=== PATIENT | male | born 1935 | race Caucasian/White ===

== ENCOUNTER 2016-06-11 12:16 | Emergency (ER) | payer MEDICARE, OTHER ==
[2016-06-11 12:42] LABS: CHLORIDE,CL 109 mEq/L (98-106); SODIUM,NA 146 mEq/L (136-145)
--- NOTE | 2016-06-11 12:54 | EDM.PDOC ---
ED HPI GENERAL MEDICAL PROBLEM - General Chief Complaint: General Stated Complaint: WEAKNESS Time Seen by Provider: 06/11/16 12:43 Source of Information: Reports: Patient History Limitations: Reports: No limitations - History of Present Illness INITIAL COMMENTS - FREE TEXT/NARRATIVE: History of present illness: [80 year-old male presenting with complaints of chronic fatigue exacerbated now by feelings of generalized weakness. Patient has home health assistance which indicated that he should come in to be evaluated. Spoke with stepson and stepdaughter in regards to their concerns of father's generalized weakness patient had a fall some time Ms. Obrien he is seen and evaluated by his primary care provider who has ordered him in home physical therapy.] Review of systems: As per history of present illness and below otherwise all systems reviewed and negative. Past medical history: As per history of present illness and as reviewed below otherwise noncontributory. Surgical history: As per history of present illness and as reviewed below otherwise noncontributory. Social history: No reported history of drug or alcohol abuse. Family history: As per history of present illness and as reviewed below otherwise noncontributory. Physical exam: HEENT: Atraumatic, normocephalic, pupils reactive, negative for conjunctival pallor or scleral icterus, mucous membranes moist, throat clear, neck supple, nontender, trachea midline. Lungs: Clear to auscultation, breath sounds equal bilaterally, chest nontender. Heart: S1S2, regular, negative for clicks, rubs, or JVD. Abdomen: Soft, nondistended, nontender. Negative for masses or hepatosplenomegaly. Negative for costovertebral tenderness. Pelvis: Stable nontender. Genitourinary: Deferred. Rectal: Deferred. Extremities: Atraumatic, negative for cords or calf pain. Neurovascular unremarkable. Neuro: Awake, alert, oriented to person place and event. Pt has clear snf memory but in relaying history he struggles to complete thoughts. Cranial nerves II through XII unremarkable. Cerebellum unremarkable. Motor and sensory unremarkable throughout. Exam nonfocal. Diagnostics: [CBC, CMP, repeat potassium level] Therapeutics: [Potassium 80 mg by mouth with 20 mg IV piggyback] Impression: [Hypokalemia] Plan: [Followup with PCP evaluate for need for inpatient rehabilitation secondary to family concern of weakness] Definitive disposition and diagnosis as appropriate pending reevaluation and review of above. - Related Data Allergies Allergy/AdvReac Type Severity Reaction Status Date / Time No Known Allergies Allergy Verified 06/11/16 12:24 Home Meds: Home Meds Ascorbic Acid [Vitamin C] 1,000 mg PO DAILY 06/11/16 [History] Aspirin 325 mg PO DAILY 06/11/16 [History] Cholecalciferol (Vitamin D3) [Vitamin D3] 2,000 unit PO DAILY 06/11/16 [History] Clopidogrel Bisulfate [Plavix] 75 mg PO DAILY 06/11/16 [History] Fenofibrate [Lofibra] 160 mg PO DAILY 06/11/16 [History] Insulin NPH/Insulin Reg,Human [HumuLIN 70-30 Pen] 50 unit SQ QAM 06/11/16 [ History] Magnesium 30 mg PO DAILY 06/11/16 [History] Metoprolol Tartrate [Lopressor] 50 mg PO BID 06/11/16 [History] Multivitamin [Multivitamins] 1 cap PO DAILY 06/11/16 [History] Nitroglycerin [Nitrostat] 0.4 mg PO ASDIRECTED PRN 06/11/16 [History] Simvastatin [Zocor] 80 mg PO DAILY 06/11/16 [History] ED ROS GENERAL - Review of Systems Review Of Systems: See Below (See history of present illness) ED EXAM, GENERAL - Physical Exam Exam: See Below (See history of present illness) Course - Vital Signs Last Recorded V/S: Last Vital Signs Temp 35.9 C 06/11/16 16:23 Pulse 84 06/11/16 16:23 Resp 20 06/11/16 16:23 BP 192/84 H 06/11/16 16:23 Pulse Ox 98 06/11/16 16:23 - Orders/Labs/Meds Orders: Active Orders 24 hr Category Date Time Status Potassium Chloride [KCL 20 MEQ in Water 100 ML] 20 meq Med 06/11/16 13:12 Active Premix Bag 1 bag IV ONETIME Sodium Chloride 0.9% [Normal Saline] 1,000 ml Med 06/11/16 13:45 Active IV ASDIRECTED Medication Orders Potassium Chloride 20 meq/ (Premix) 100 mls @ 25 mls/hr IV ONETIME ONE Stop: 06/11/16 17:11 Last Admin: 06/11/16 13:40 Dose: 25 mls/hr Sodium Chloride (Normal Saline) 1,000 mls @ 75 mls/hr IV ASDIRECTED ANTHONY Last Admin: 06/11/16 13:47 Dose: 75 mls/hr Labs: Laboratory Tests 06/11/16 06/11/16 06/11/16 Range/Units 12:26 12:26 15:54 WBC 10.9 H (5.0-10.0) 10^3/uL RBC 4.45 L (4.50-6.00) 10^6/uL Hgb 14.1 (14.0-18.0) g/dL Hct 41.4 (40.0-54.0) % MCV 93.0 (82.0-94.0) fL MCH 31.7 (27.0-32.0) pg MCHC 34.1 (33.0-38.0) g/dL RDW Coeff of George 13.5 (11.0-15.0) % Plt Count 295 (150-400) 10^3/uL Neut % (Auto) 70.2 (35-85) % Lymph % (Auto) 21.0 (10-55) % [place] % (Auto) 8.1 (0-16) % Eos % (Auto) 0.5 (0-5) % Baso % (Auto) 0.2 (0-3) % Neut # 7.67 H (1.80-7.00) 10^3/uL Lymph # 2.30 (1.00-4.80) 10^3/uL [place] # 0.88 H (0.00-0.80) 10^3/uL Eos # 0.06 (0.00-0.45) 10^3/uL Baso # 0.02 10^3/uL Sodium 146 H (136-145) mEq/L Potassium 2.9 L* D (3.5-5.0) mEq/L Chloride 109 H (98-106) mEq/L Carbon Dioxide 30 (21-32) mmol/L BUN 17 (7-18) mg/dL Creatinine 1.1 (0.7-1.3) mg/dL Est Cr Clr Drug Dosing 55.14 mL/min Estimated GFR (MDRD) > 60 (>=60) mL/min Glucose 119 H (75-99) mg/dL Calcium 10.4 H (8.4-10.1) mg/dL Total Bilirubin 0.4 (0.0-1.0) mg/dL AST 16 (15-37) U/L ALT 20 (12-78) U/L Alkaline Phosphatase 68 (46-116) U/L Total Protein 7.0 (6.4-8.2) g/dL Albumin 3.2 L (3.4-5.0) g/dL Urine Color Yellow (YELLOW) Urine Appearance Slightly cloudy (CLEAR) Urine pH 7.0 (4.5-8.0) Ur Specific [place] 1.014 (1.003-1.020) Urine Protein Negative (NEGATIVE) mg/dL Urine Glucose (UA) Negative (NEGATIVE) mg/dL Urine Ketones Negative (NEGATIVE) mg/dL Urine Occult Blood Negative (NEGATIVE) Urine Nitrite Negative (NEGATIVE) Urine Bilirubin Negative (NEGATIVE) Urine Urobilinogen 0.2 (0.2-1.0) EU/dL Ur Leukocyte Esterase Negative (NEGATIVE) Urine RBC Not seen (0-5) /HPF Urine WBC Not seen (0-5) /HPF Ur Squamous Epith Cells Occasional H (NOT SEEN) /HPF Amorphous Sediment Moderate H (NOT SEEN) /HPF 06/11/16 Range/Units 16:01 WBC (5.0-10.0) 10^3/uL RBC (4.50-6.00) 10^6/uL Hgb (14.0-18.0) g/dL Hct (40.0-54.0) % MCV (82.0-94.0) fL MCH (27.0-32.0) pg MCHC (33.0-38.0) g/dL RDW Coeff of George (11.0-15.0) % Plt Count (150-400) 10^3/uL Neut % (Auto) (35-85) % Lymph % (Auto) (10-55) % [place] % (Auto) (0-16) % Eos % (Auto) (0-5) % Baso % (Auto) (0-3) % Neut # (1.80-7.00) 10^3/uL Lymph # (1.00-4.80) 10^3/uL [place] # (0.00-0.80) 10^3/uL Eos # (0.00-0.45) 10^3/uL Baso # 10^3/uL Sodium (136-145) mEq/L Potassium 3.7 D (3.5-5.0) mEq/L Chloride (98-106) mEq/L Carbon Dioxide (21-32) mmol/L BUN (7-18) mg/dL Creatinine (0.7-1.3) mg/dL Est Cr Clr Drug Dosing mL/min Estimated GFR (MDRD) (>=60) mL/min Glucose (75-99) mg/dL Calcium (8.4-10.1) mg/dL Total Bilirubin (0.0-1.0) mg/dL AST (15-37) U/L ALT (12-78) U/L Alkaline Phosphatase (46-116) U/L Total Protein (6.4-8.2) g/dL Albumin (3.4-5.0) g/dL Urine Color (YELLOW) Urine Appearance (CLEAR) Urine pH (4.5-8.0) Ur Specific [place] (1.003-1.020) Urine Protein (NEGATIVE) mg/dL Urine Glucose (UA) (NEGATIVE) mg/dL Urine Ketones (NEGATIVE) mg/dL Urine Occult Blood (NEGATIVE) Urine Nitrite (NEGATIVE) Urine Bilirubin (NEGATIVE) Urine Urobilinogen (0.2-1.0) EU/dL Ur Leukocyte Esterase (NEGATIVE) Urine RBC (0-5) /HPF Urine WBC (0-5) /HPF Ur Squamous Epith Cells (NOT SEEN) /HPF Amorphous Sediment (NOT SEEN) /HPF Meds: Medications Generic Name Dose Route Start Last Admin Trade Name Freq PRN Reason Stop Dose Admin Potassium Chloride 20 meq/ 100 mls @ 25 mls/hr 06/11/16 13:12 06/11/16 13:40 Premix IV 06/11/16 17:11 25 mls/hr ONETIME ONE Administration Sodium Chloride 1,000 mls @ 75 mls/hr 06/11/16 13:45 06/11/16 13:47 Normal Saline IV 75 mls/hr ASDIRECTED ANTOHNY Administration Discontinued Medications Generic Name Dose Route Start Last Admin Trade Name Freq PRN Reason Stop Dose Admin Sodium Chloride Confirm 06/11/16 13:48 Normal Saline Administered 06/11/16 13:49 Dose 1,000 mls @ as directed .ROUTE .STK-MED ONE Metoprolol Tartrate 50 mg 06/11/16 16:31 Lopressor PO 06/11/16 16:32 ONETIME ONE Potassium Chloride 40 meq 06/11/16 13:04 06/11/16 13:34 Potassium Chloride Solution PO 06/11/16 13:05 40 meq ONETIME ONE Administration Potassium Chloride 40 meq 06/11/16 14:48 06/11/16 15:29 Potassium Chloride Solution PO 06/11/16 14:49 40 meq ONETIME ONE Administration Departure - Departure Time of Disposition: 16:35 Disposition: Home, Self-Care 01 Condition: good Clinical Impression: Hypokalemia, Weakness Forms: ED Department Discharge Additional Instructions: The following information is given to patients seen in the emergency department who are being discharged to home. This information is to outline your options for follow-up care. We provide all patients seen in our emergency department with a follow-up referral. The need for follow-up, as well as the timing and circumstances, are variable depending upon the specifics of your emergency department visit. If you don't have a primary care physician on staff, we will provide you with a referral. We always advise you to contact your personal physician following an emergency department visit to inform them of the circumstance of the visit and for follow-up with them and/or the need for any referrals to a consulting specialist. The emergency department will also refer you to a specialist when appropriate. This referral assures that you have the opportunity for follow-up care with a specialist. All of these measure are taken in an effort to provide you with optimal care, which includes your follow-up. Under all circumstances we always encourage you to contact your private physician who remains a resource for coordinating your care. When calling for follow-up care, please make the office aware that this follow-up is from your recent emergency room visit. If for any reason you are refused follow-up, please contact the [facility] Emergency Department at and asked to speak to the emergency department charge nurse. Follow up with Primary Care provider for further evaluation of rehab or homestay Return to ER as needed - My Orders Last 24 Hours: My Active Orders 06/11/16 13:12 Potassium Chloride [KCL 20 MEQ in Water 100 ML] 20 meq Premix Bag 1 bag IV ONETIME 06/11/16 13:45 Sodium Chloride 0.9% [Normal Saline] 1,000 ml IV ASDIRECTED - Assessment/Plan Last 24 Hours: My Active Orders 06/11/16 13:12 Potassium Chloride [KCL 20 MEQ in Water 100 ML] 20 meq Premix Bag 1 bag IV ONETIME 06/11/16 13:45 Sodium Chloride 0.9% [Normal Saline] 1,000 ml IV ASDIRECTED
[2016-06-11] MEDS ORDERED: Potassium Chloride 10% 20 MEQ/15 ML Soln 15 ML UD Cup PO ONE ×2 (13:04→14:48)
[2016-06-11] MEDS ORDERED: Potassium Chloride 20 MEQ in Premix Bag 1 BAG IV ONE (13:12)
[2016-06-11] MEDS ORDERED: Sodium Chloride 0.9% 1,000 ML IV SCH (13:45)
[2016-06-11] MEDS ORDERED: Sodium Chloride 0.9% 1,000 ML ONE (13:48)
[2016-06-11] MEDS ORDERED: Metoprolol Tartrate 50 MG Tab PO ONE (16:31)
[2016-06-12 14:16] VITALS: BP 195/94
== END 2016-06-11 17:12 | disposition home or self-care (01) ==
LOC: CC.ED 12:16 → CC.MS 06-12 13:48 → UNDOADMIN 06-12 13:48
DX: E87.6 Hypokalemia (principal); R53.1 Weakness; Z79.82 Long term (current) use of aspirin; Z79.899 Other long term (current) drug therapy; E11.9 Type 2 diabetes mellitus without complications; Z79.4 Long term (current) use of insulin
CPT/HCPCS: 36415; 80053; 81001; 84132; 85025; 96365; 96366; 99285; A9270; J3480; J7030

== ENCOUNTER 2016-06-12 10:42 | Inpatient (IN) | payer MEDICARE, OTHER ==
[2016-06-12] MEDS ORDERED: Sodium Chloride 0.9% 1,000 ML IV ONE (11:34)
[2016-06-12] MEDS ORDERED: Ketorolac 30 MG/ML SDV IVPUSH ONE (11:34)
--- NOTE | 2016-06-12 11:35 | EDM.PDOC ---
ED HPI Trauma - General Chief Complaint: Lower Extremity Injury/Pain Stated Complaint: fall/left hip pain Time Seen by Provider: 06/12/16 11:30 Source: Reports: Patient, Family History Limitations: Reports: No limitations - History of Present Illness INITIAL COMMENTS - FREE TEXT/NARRATIVE: History of present illness: [80-year-old male returns to ED from home status post fall in the kitchen. Patient was seen in the ED yesterday secondary to feelings of generalized weakness. Patient was found yesterday to have hypokalemia which was repleted and patient verbalized desire to return home and was stable enough to do so. Patient has had a recent issue with his gait starting a few weeks ago where he slipped and fell and hurt his back he had just started getting physical therapy as well as home health care. Dilantin yesterday with family was in regards to patient's potential need for inpatient rehabilitation as well as potential long- term care placement. Family indicated that they wanted to dialogue about this care and future decision making in regards to patient's needs. Now patient is presenting with yet another fall this time with left-sided hip pain.] Review of systems: As per history of present illness and below otherwise all systems reviewed and negative. Past medical history: As per history of present illness and as reviewed below otherwise noncontributory. Surgical history: As per history of present illness and as reviewed below otherwise noncontributory. Social history: No reported history of drug or alcohol abuse. Family history: As per history of present illness and as reviewed below otherwise noncontributory. Physical exam: HEENT: Atraumatic, normocephalic, pupils reactive, negative for conjunctival pallor or scleral icterus, mucous membranes moist, throat clear, neck supple, nontender, trachea midline. Lungs: Clear to auscultation, breath sounds equal bilaterally, chest nontender. Heart: S1S2, regular, negative for clicks, rubs, or JVD. Abdomen: Soft, nondistended, nontender. Negative for masses or hepatosplenomegaly. Negative for costovertebral tenderness. Pelvis: Stable nontender. Genitourinary: Deferred. Rectal: Deferred. Extremities: Patient with pain to left hip and noted abrasions bilateral knees, , negative for cords or calf pain. Neurovascular unremarkable. Neuro: Awake, alert, oriented self and history are all issues but noted to have sporadic loss of events as well as short-term memory issues. Extremely hard of hearing and difficult to follow a thorough neuro evaluation secondary to this issue . Family indicates that this is a new altered metal status as patient has been independent with no difficulties prior to now. Patient was seen here yesterday with a low potassium level and potassium level is stable at this time. Diagnostics: [X-ray of left hip, CT of left hip, CBC, CMP] Therapeutics: [] Impression: [Altered mental status] Plan: [Admit to [facility] for further evaluation workup Definitive disposition and diagnosis as appropriate pending reevaluation and review of above. Allergies/ADRs: Allergies No Known Allergies Allergy (Verified 06/12/16 10:45) Home Medications: Ambulatory Orders Ascorbic Acid [Vitamin C] 1,000 mg PO DAILY 06/11/16 [Confirmed 06/12/16] Aspirin 325 mg PO DAILY 06/11/16 [Confirmed 06/12/16] Cholecalciferol (Vitamin D3) [Vitamin D3] 2,000 unit PO DAILY 06/11/16 [ Confirmed 06/12/16] Clopidogrel Bisulfate [Plavix] 75 mg PO DAILY 06/11/16 [Confirmed 06/12/16] Fenofibrate [Lofibra] 160 mg PO DAILY 06/11/16 [Confirmed 06/12/16] Insulin NPH/Insulin Reg,Human [HumuLIN 70-30 Pen] 50 unit SQ QAM 06/11/16 [ Confirmed 06/12/16] Magnesium 30 mg PO DAILY 06/11/16 [Confirmed 06/12/16] Metoprolol Tartrate [Lopressor] 50 mg PO BID 06/11/16 [Confirmed 06/12/16] Multivitamin [Multivitamins] 1 cap PO DAILY 06/11/16 [Confirmed 06/12/16] Nitroglycerin [Nitrostat] 0.4 mg PO ASDIRECTED PRN 06/11/16 [Confirmed 06/12/16] Simvastatin [Zocor] 80 mg PO DAILY 06/11/16 [Confirmed 06/12/16] Past Medical History Cardiovascular History: Reports: High cholesterol, Hypertension, Stents Genitourinary History: Reports: BPH Endocrine/Metabolic History: Reports: Diabetes, type II - Past Surgical History GI Surgical History: Reports: Colonoscopy Musculoskeletal Surgical History: Reports: Knee replacement Social & Family History - Tobacco Use Smoking Status *Q: Former Smoker Years of Tobacco use: 45 - Recreational Drug Use Recreational Drug Use: No Review of Systems - Review of Systems Review Of Systems: See Below (See history of present illness) Trauma Exam - Physical Exam Exam: See Below (See history of present illness) Course - Vital Signs Last Recorded V/S: Last Vital Signs Temp 37.1 C 06/12/16 10:43 Pulse 99 06/12/16 10:43 Resp 20 06/12/16 10:43 BP 174/123 H 06/12/16 10:43 Pulse Ox 98 06/12/16 10:43 - Orders/Labs/Meds Orders: Active Orders 24 hr Category Date Time Status Head wo Cont [CT] Routine Exams 06/12/16 Taken Hip Min 2V or 3V w Pelvis Lt [CR] Stat Exams 06/12/16 10:49 Taken Pelvis wo Cont [CT] Stat Exams 06/12/16 11:33 Taken Sodium Chloride 0.9% [Normal Saline] 1,000 ml Med 06/12/16 11:34 Active IV STAT Medication Orders Sodium Chloride (Normal Saline) 1,000 mls @ 75 mls/hr IV STAT ONE Stop: 06/13/16 00:53 Last Admin: 06/12/16 11:47 Dose: 75 mls/hr Labs: Laboratory Tests 06/12/16 06/12/16 Range/Units 11:33 11:50 WBC 14.3 H (5.0-10.0) 10^3/uL RBC 4.37 L (4.50-6.00) 10^6/uL Hgb 13.9 L (14.0-18.0) g/dL Hct 41.0 (40.0-54.0) % MCV 93.8 (82.0-94.0) fL MCH 31.8 (27.0-32.0) pg MCHC 33.9 (33.0-38.0) g/dL RDW Coeff of George 13.8 (11.0-15.0) % Plt Count 284 (150-400) 10^3/uL Neut % (Auto) 76.0 (35-85) % Lymph % (Auto) 12.9 (10-55) % [place] % (Auto) 10.2 (0-16) % Eos % (Auto) 0.6 (0-5) % Baso % (Auto) 0.3 (0-3) % Neut # 10.84 H (1.80-7.00) 10^3/uL Lymph # 1.84 (1.00-4.80) 10^3/uL [place] # 1.45 H (0.00-0.80) 10^3/uL Eos # 0.08 (0.00-0.45) 10^3/uL Baso # 0.04 10^3/uL Sodium 145 (136-145) mEq/L Potassium 3.3 L (3.5-5.0) mEq/L Chloride 108 H (98-106) mEq/L Carbon Dioxide 27 (21-32) mmol/L BUN 15 (7-18) mg/dL Creatinine 1.1 (0.7-1.3) mg/dL Est Cr Clr Drug Dosing TNP Estimated GFR (MDRD) > 60 (>=60) mL/min Glucose 167 H D (75-99) mg/dL Calcium 10.0 (8.4-10.1) mg/dL Total Bilirubin 0.5 (0.0-1.0) mg/dL AST 18 (15-37) U/L ALT 21 (12-78) U/L Alkaline Phosphatase 72 (46-116) U/L Total Protein 6.9 (6.4-8.2) g/dL Albumin 3.4 (3.4-5.0) g/dL Meds: Medications Generic Name Dose Route Start Last Admin Trade Name Freq PRN Reason Stop Dose Admin Sodium Chloride 1,000 mls @ 75 mls/hr 06/12/16 11:34 06/12/16 11:47 Normal Saline IV 06/13/16 00:53 75 mls/hr STAT ONE Administration Discontinued Medications Generic Name Dose Route Start Last Admin Trade Name Freq PRN Reason Stop Dose Admin Ketorolac Tromethamine 30 mg 06/12/16 11:34 06/12/16 11:47 Toradol IVPUSH 06/12/16 11:35 30 mg ONETIME ONE Administration Ondansetron HCl 4 mg 06/12/16 11:34 Zofran IVPUSH 06/12/16 11:35 ONETIME ONE Departure - Departure Time of Disposition: 14:00 Disposition: Admitted As Inpatient 64 Condition: good Clinical Impression: Altered mental status, unspecified Qualifiers: Altered mental status type: unspecified Qualified Code(s): R41.82 - Altered mental status, unspecified Forms: ED Department Discharge - My Orders Last 24 Hours: My Active Orders 06/12/16 Head wo Cont [CT] Routine 06/12/16 10:49 Hip Min 2V or 3V w Pelvis Lt [CR] Stat 06/12/16 11:33 Pelvis wo Cont [CT] Stat 06/12/16 11:34 Sodium Chloride 0.9% [Normal Saline] 1,000 ml IV STAT - Assessment/Plan Last 24 Hours: My Active Orders 06/12/16 Head wo Cont [CT] Routine 06/12/16 10:49 Hip Min 2V or 3V w Pelvis Lt [CR] Stat 06/12/16 11:33 Pelvis wo Cont [CT] Stat 06/12/16 11:34 Sodium Chloride 0.9% [Normal Saline] 1,000 ml IV STAT
[2016-06-12] MEDS: Ondansetron 4 MG/2 ML SDV IVPUSH ONE ×2 (11:47→15:21)
[2016-06-12 12:13] LABS: CHLORIDE,CL 108 mEq/L (98-106); SODIUM,NA 145 mEq/L (136-145)
[2016-06-12] MEDS ORDERED: Morphine 2 MG/ML Syringe IVPUSH ONE (17:54)
[2016-06-12] MEDS ORDERED: Ondansetron 4 MG/2 ML SDV IVPUSH ONE (17:55)
[2016-06-12] MEDS ORDERED: Docusate Sodium 100 MG Cap PO PRN (18:13)
[2016-06-12] MEDS ORDERED: Ondansetron 4 MG Tab.DIS PO PRN (18:13)
[2016-06-12] MEDS ORDERED: Morphine 2 MG/ML Syringe IVPUSH PRN (18:13)
[2016-06-12] MEDS ORDERED: Ketorolac 30 MG/ML SDV IV PRN (18:13)
[2016-06-12] MEDS ORDERED: Nitroglycerin 0.4 MG Tab.SL SL PRN (20:38)
[2016-06-12] MEDS: Insulin Detemir 100 Units/ML 3 ML Pen SUBCUT SCH (21:11)
[2016-06-12] MEDS ORDERED: Levofloxacin/Dextrose 5%-Water 750 MG in Premix Bag 1 BAG IV ONE (22:10)
[2016-06-13] MEDS: Aspirin 325 MG Tab.EC PO SCH (07:45)
[2016-06-13] MEDS: Cholecalciferol (Vitamin D3) 1,000 Unit Tab PO SCH (07:46)
[2016-06-13] MEDS: Ascorbic Acid 500 MG Tab PO SCH (07:46)
[2016-06-13] MEDS: Multivitamin Tab PO SCH (07:47)
[2016-06-13] MEDS: Magnesium Chloride 64 MG Tab.ER PO SCH (07:48)
[2016-06-13] MEDS: Metoprolol Tartrate 50 MG Tab PO SCH ×2 (07:48→20:10)
[2016-06-13] MEDS: Fenofibrate 160 MG Tab PO SCH (07:48)
[2016-06-13] MEDS: Clopidogrel 75 MG Tab PO SCH (07:49)
[2016-06-13] MEDS ORDERED: Simvastatin 40 MG Tab PO SCH (08:00)
[2016-06-13] MEDS: Insulin Detemir 100 Units/ML 3 ML Pen SUBCUT SCH (08:48)
[2016-06-13] MEDS: Insuln Aspart Prot/Insulin Aspart 100 Units/ML 3 ML FlexPen SUBCUT SCH ×2 (09:07→17:39)
[2016-06-13] MEDS: Nystatin Crm 30 GM Tube TOP SCH ×2 (09:08→20:11)
--- NOTE | 2016-06-13 09:20 | PN ---
DATE: 06/13/2016 S: Robinson Acuna was admitted after he fell at home, difficulty moving his left leg. Complaining of back pain. O: GENERAL: The patient is alert and orientated. VITAL SIGNS: As noted. NECK: Supple. CHEST: Clear. CARDIAC: Sounds are good. ABDOMEN: Soft. MUSCULOSKELETAL: He is tender over the lumbar spine. ASSESSMENT: BACK INJURY, DIABETES, HYPOKALEMIA, WHICH IS CORRECTING. P: We will get an MRI tomorrow and work on usp placement. MICHAEL/BRITNEY /[id number]
[2016-06-13 09:51] LABS: CHLORIDE,CL 108 mEq/L (98-106); SODIUM,NA 143 mEq/L (136-145)
[2016-06-14] MEDS ORDERED: 50% Dextrose in Water 50 ML Syringe IVPUSH ONE (00:42)
[2016-06-14] MEDS: Aspirin 325 MG Tab.EC PO SCH (07:38)
[2016-06-14] MEDS: Fenofibrate 160 MG Tab PO SCH (07:38)
[2016-06-14] MEDS: Metoprolol Tartrate 50 MG Tab PO SCH ×2 (07:38→20:25)
[2016-06-14] MEDS: Nystatin Crm 30 GM Tube TOP SCH ×2 (07:39→20:28)
[2016-06-14] MEDS: Magnesium Chloride 64 MG Tab.ER PO SCH (07:39)
[2016-06-14] MEDS: Clopidogrel 75 MG Tab PO SCH (07:39)
[2016-06-14] MEDS: Cholecalciferol (Vitamin D3) 1,000 Unit Tab PO SCH (07:40)
[2016-06-14] MEDS: Ascorbic Acid 500 MG Tab PO SCH (07:40)
[2016-06-14] MEDS: Multivitamin Tab PO SCH (07:40)
[2016-06-14] MEDS: Insuln Aspart Prot/Insulin Aspart 100 Units/ML 3 ML FlexPen SUBCUT SCH ×3 (08:27→17:33)
[2016-06-14] MEDS: Potassium Chloride 10 MEQ Tab.ER PO SCH (08:30)
[2016-06-14 08:41] LABS: CHLORIDE,CL 105 mEq/L (98-106); SODIUM,NA 141 mEq/L (136-145)
--- NOTE | 2016-06-14 15:08 | PN ---
DATE: 06/14/2016 S: Robinson Acuna came in, fell at home, unable to get up, back injury, and for with diabetes. They say he is a bit confused. O: GENERAL: The patient is mildly confused. NECK: Supple. CHEST: Clear. CARDIAC: Regular. ASSESSMENT: BACK INJURY, DIABETES MELLITUS, MILD CONFUSION. P: We are working on [facility] placement. MICHAEL/BRITNEY /[id number]
[2016-06-14] MEDS: Simvastatin 40 MG Tab PO SCH (20:26)
[2016-06-14] MEDS ORDERED: THIAMINE IV ONE (21:37)
[2016-06-14] MEDS ORDERED: FOLIC ACID IV ONE (21:37)
[2016-06-14] MEDS ORDERED: MAGNESIUM SULFATE IV ONE (21:37)
[2016-06-14] MEDS ORDERED: [UNRECOGNIZED DRUG - OTHER] IV ONE (21:37)
[2016-06-15] MEDS: Metoprolol Tartrate 50 MG Tab PO SCH ×2 (07:40→19:09)
[2016-06-15] MEDS: Potassium Chloride 10 MEQ Tab.ER PO SCH (07:41)
[2016-06-15] MEDS: Aspirin 325 MG Tab.EC PO SCH (07:41)
[2016-06-15] MEDS: Fenofibrate 160 MG Tab PO SCH (07:42)
[2016-06-15] MEDS: Magnesium Chloride 64 MG Tab.ER PO SCH (07:42)
[2016-06-15] MEDS: Clopidogrel 75 MG Tab PO SCH (07:42)
[2016-06-15] MEDS: Ascorbic Acid 500 MG Tab PO SCH (07:43)
[2016-06-15] MEDS: Cholecalciferol (Vitamin D3) 1,000 Unit Tab PO SCH (07:43)
[2016-06-15] MEDS: Multivitamin Tab PO SCH (07:43)
[2016-06-15] MEDS: Nystatin Crm 30 GM Tube TOP SCH ×2 (07:44→19:04)
[2016-06-15] MEDS: Insuln Aspart Prot/Insulin Aspart 100 Units/ML 3 ML FlexPen SUBCUT SCH ×2 (08:11→17:32)
--- NOTE | 2016-06-15 12:29 | PN ---
DATE: 06/15/2016 S: Robinson Acuna is an 80-year-old gentleman, who came in after a fall with knee injury and back injury. MRI is pending. He is a little bit more confused today, but his family says he drinks quite a bit of uzma at night and may be that is just little withdrawal from that. Otherwise, lab looks good. O: NECK: Supple. CHEST: Clear. CARDIAC: Sounds are good. ASSESSMENT: BACK INJURY, EARLY DEMENTIA, DIABETES UNDER CONTROL NOW. P: halfway placement. MICHAEL/BRITNEY /[id number]
[2016-06-15] MEDS: Simvastatin 40 MG Tab PO SCH (19:04)
[2016-06-16 07:18] VITALS: BP 191/90
[2016-06-16] MEDS: Aspirin 325 MG Tab.EC PO SCH (08:11)
[2016-06-16] MEDS: Multivitamin Tab PO SCH (08:11)
[2016-06-16] MEDS: Fenofibrate 160 MG Tab PO SCH (08:11)
[2016-06-16] MEDS: Potassium Chloride 10 MEQ Tab.ER PO SCH (08:11)
[2016-06-16] MEDS: Cholecalciferol (Vitamin D3) 1,000 Unit Tab PO SCH (08:11)
[2016-06-16] MEDS: Metoprolol Tartrate 50 MG Tab PO SCH (08:11)
[2016-06-16] MEDS: Magnesium Chloride 64 MG Tab.ER PO SCH (08:12)
[2016-06-16] MEDS: Clopidogrel 75 MG Tab PO SCH (08:12)
[2016-06-16] MEDS: Ascorbic Acid 500 MG Tab PO SCH (08:12)
[2016-06-16] MEDS: Nystatin Crm 30 GM Tube TOP SCH (08:12)
[2016-06-16] MEDS: Insuln Aspart Prot/Insulin Aspart 100 Units/ML 3 ML FlexPen SUBCUT SCH (08:13)
--- NOTE | 2016-06-17 08:38 | DISCH ---
HOSPITAL COURSE: Robinson Acuna was admitted after he fell at home, moderate- to-severe back pain, he is admitted to acute care, started on PT/OT. Also, blood sugars were elevated, so we watched him closely and actually yesterday his blood sugar was 149. CBC; mildly elevated white count on admission, probably secondary just to the trauma. D-dimer elevated 1.71 probably from his lung disease. Potassium was low with back up to 3.4. Urinalysis looked good. DISPOSITION: The patient now discharged here to swing bed, awaiting jail placement in [place]. DISCHARGE MEDICATIONS: Hospital medications plus I will add lisinopril 10 mg daily, try and bring his blood pressure down. DISCHARGE DIAGNOSIS: 1. BACK INJURY. 2. DIABETES MELLITUS. 3. CORONARY ARTERY DISEASE. 4. DIABETES. 5. HYPERTENSION. 6. HYPERLIPIDEMIA. [place] /[id number]
== END 2016-06-16 09:30 | disposition swing bed (61) | DRG 948 ==
LOC: CC.ED 10:42 → CC.MS 13:48 → UNDOADMIN 13:48 → CC.MS 14:32
PROVIDERS: ADMIT Nurse Practitioner Family; ATTEND General Practice
DX: R41.82 Altered mental status, unspecified (principal); R53.1 Weakness; M25.552 Pain in left hip; M19.90 Unspecified osteoarthritis, unspecified site; E87.6 Hypokalemia; E11.9 Type 2 diabetes mellitus without complications; Z79.4 Long term (current) use of insulin; S79.912A Unspecified injury of left hip, initial encounter; S39.92XA Unspecified injury of lower back, initial encounter; W19.XXXA Unspecified fall, initial encounter; I25.10 Atherosclerotic heart disease of native coronary artery without angina pectoris; I10 Essential (primary) hypertension; E78.00 Pure hypercholesterolemia, unspecified; E78.5 Hyperlipidemia, unspecified; N40.0 Benign prostatic hyperplasia without lower urinary tract symptoms; Z95.5 Presence of coronary angioplasty implant and graft; Z96.651 Presence of right artificial knee joint; Z87.891 Personal history of nicotine dependence; Z79.82 Long term (current) use of aspirin; Z79.899 Other long term (current) drug therapy
CPT/HCPCS: 36415; 70450; 72192; 73502; 80053; 85025; 96374; 99284; J1885; J2405; J7030; 72148; 73560-LT; 80048; 81001; 82962; 83605; 83880; 85379; 86140; 87040; 97162-GP; 97165-GO; 97530-GP; A9270-GY; J1815-GY; J1956; J2270; J3411; J3475; J3490; J7060

== ENCOUNTER 2016-06-16 09:36 | Inpatient (IN) | payer MEDICARE, OTHER ==
[2016-06-16] MEDS ORDERED: Docusate Sodium 100 MG Cap PO PRN ×2 (13:03→13:31)
[2016-06-16] MEDS ORDERED: Morphine 2 MG/ML Syringe IVPUSH PRN ×2 (13:03→13:31)
[2016-06-16] MEDS ORDERED: Nitroglycerin 0.4 MG Tab.SL SL PRN ×3 (13:03→14:32)
[2016-06-16] MEDS ORDERED: Ondansetron 4 MG Tab.DIS PO PRN ×2 (13:03→13:31)
[2016-06-16] MEDS ORDERED: Ketorolac 30 MG/ML SDV IV PRN ×2 (13:03→13:31)
[2016-06-16] MEDS: Lisinopril 10 MG Tab PO SCH (14:42)
[2016-06-16] MEDS ORDERED: Insuln Aspart Prot/Insulin Aspart 100 Units/ML 3 ML FlexPen SUBCUT SCH (17:30)
[2016-06-16] MEDS ORDERED: INSULIN REGULAR SUBCUT SCH (17:30)
[2016-06-16] MEDS ORDERED: INSULIN ISOPHANE SUBCUT SCH (17:30)
[2016-06-16] MEDS ORDERED: [UNRECOGNIZED DRUG - OTHER] SUBCUT SCH (17:30)
[2016-06-16] MEDS: Insuln Aspart Prot/Insulin Aspart 100 Units/ML 3 ML FlexPen SUBCUT SCH (17:45)
[2016-06-16] MEDS: Metoprolol Tartrate 50 MG Tab PO SCH (19:20)
[2016-06-16] MEDS: Simvastatin 40 MG Tab PO SCH (19:21)
[2016-06-16] MEDS: Nystatin Crm 30 GM Tube TOP SCH (19:21)
[2016-06-16] MEDS ORDERED: Metoprolol Tartrate 50 MG Tab PO SCH ×2 (20:00)
[2016-06-16] MEDS ORDERED: Nystatin Crm 30 GM Tube TOP SCH (20:00)
[2016-06-16] MEDS ORDERED: Simvastatin 40 MG Tab PO SCH (20:00)
[2016-06-17] MEDS: Fenofibrate 160 MG Tab PO SCH (07:25)
[2016-06-17] MEDS: Potassium Chloride 10 MEQ Tab.ER PO SCH (07:25)
[2016-06-17] MEDS: Aspirin 325 MG Tab.EC PO SCH (07:25)
[2016-06-17] MEDS: Magnesium Chloride 64 MG Tab.ER PO SCH (07:26)
[2016-06-17] MEDS: Nystatin Crm 30 GM Tube TOP SCH ×2 (07:26→19:52)
[2016-06-17] MEDS: Metoprolol Tartrate 50 MG Tab PO SCH ×2 (07:26→19:50)
[2016-06-17] MEDS: Clopidogrel 75 MG Tab PO SCH (07:27)
[2016-06-17] MEDS: Ascorbic Acid 500 MG Tab PO SCH (07:27)
[2016-06-17] MEDS: Multivitamin Tab PO SCH (07:27)
[2016-06-17] MEDS: Lisinopril 10 MG Tab PO SCH (07:27)
[2016-06-17] MEDS: Cholecalciferol (Vitamin D3) 1,000 Unit Tab PO SCH (07:28)
[2016-06-17] MEDS ORDERED: INSULIN ISOPHANE SQ SCH (08:00)
[2016-06-17] MEDS ORDERED: Non-Formulary Medication 1 Each (Ascorbic Acid [Vitamin C] 1,000 MG) PO SCH (08:00)
[2016-06-17] MEDS ORDERED: Non-Formulary Medication 1 Each (Simvastatin [Zocor] 80 MG) PO SCH (08:00)
[2016-06-17] MEDS ORDERED: Fenofibrate 160 MG Tab PO SCH ×2 (08:00)
[2016-06-17] MEDS ORDERED: Multivitamin Tab PO SCH (08:00)
[2016-06-17] MEDS ORDERED: Non-Formulary Medication 1 Each (Magnesium [Magnesium] 30 MG) PO SCH (08:00)
[2016-06-17] MEDS ORDERED: Aspirin 325 MG Tab PO SCH (08:00)
[2016-06-17] MEDS ORDERED: Magnesium Chloride 64 MG Tab.ER PO SCH (08:00)
[2016-06-17] MEDS ORDERED: Insuln Aspart Prot/Insulin Aspart 100 Units/ML 3 ML FlexPen SUBCUT SCH (08:00)
[2016-06-17] MEDS ORDERED: Cholecalciferol (Vitamin D3) 1,000 Unit Tab PO SCH (08:00)
[2016-06-17] MEDS ORDERED: INSULIN REGULAR SQ SCH (08:00)
[2016-06-17] MEDS ORDERED: Aspirin 325 MG Tab.EC PO SCH (08:00)
[2016-06-17] MEDS ORDERED: Clopidogrel 75 MG Tab PO SCH ×2 (08:00)
[2016-06-17] MEDS ORDERED: Non-Formulary Medication 1 Each (Multivitamin [Multivitamins] 1 CAP) PO SCH (08:00)
[2016-06-17] MEDS ORDERED: Non-Formulary Medication 1 Each (Cholecalciferol (Vitamin D3) [Vitamin D3] 2,000 UNIT) PO SCH (08:00)
[2016-06-17] MEDS ORDERED: [UNRECOGNIZED DRUG - OTHER] SQ SCH (08:00)
[2016-06-17] MEDS ORDERED: Ascorbic Acid 500 MG Tab PO SCH (08:00)
[2016-06-17] MEDS ORDERED: Potassium Chloride 10 MEQ Tab.ER PO SCH (08:00)
[2016-06-17] MEDS: Insuln Aspart Prot/Insulin Aspart 100 Units/ML 3 ML FlexPen SUBCUT SCH ×2 (08:04→17:36)
[2016-06-17 08:07] LABS: CHLORIDE,CL 105 mEq/L (98-106); SODIUM,NA 142 mEq/L (136-145)
[2016-06-17] MEDS ORDERED: Iopamidol 612 MG/ML 100 ML Bottle IVPUSH ONE (10:35)
[2016-06-17] MEDS: Simvastatin 40 MG Tab PO SCH (19:50)
[2016-06-18] MEDS: Metoprolol Tartrate 50 MG Tab PO SCH ×2 (08:30→20:13)
[2016-06-18] MEDS: Magnesium Chloride 64 MG Tab.ER PO SCH (08:30)
[2016-06-18] MEDS: Clopidogrel 75 MG Tab PO SCH (08:30)
[2016-06-18] MEDS: Cholecalciferol (Vitamin D3) 1,000 Unit Tab PO SCH (08:30)
[2016-06-18] MEDS: Lisinopril 10 MG Tab PO SCH (08:30)
[2016-06-18] MEDS: Potassium Chloride 10 MEQ Tab.ER PO SCH (08:30)
[2016-06-18] MEDS: Aspirin 325 MG Tab.EC PO SCH (08:31)
[2016-06-18] MEDS: Insuln Aspart Prot/Insulin Aspart 100 Units/ML 3 ML FlexPen SUBCUT SCH ×2 (08:31→17:48)
[2016-06-18] MEDS: Multivitamin Tab PO SCH (08:31)
[2016-06-18] MEDS: Ascorbic Acid 500 MG Tab PO SCH (08:31)
[2016-06-18] MEDS: Fenofibrate 160 MG Tab PO SCH (08:31)
[2016-06-18] MEDS: Nystatin Crm 30 GM Tube TOP SCH ×2 (08:32→20:13)
[2016-06-18] MEDS: Simvastatin 40 MG Tab PO SCH (20:13)
[2016-06-19] MEDS: Ascorbic Acid 500 MG Tab PO SCH (08:14)
[2016-06-19] MEDS: Aspirin 325 MG Tab.EC PO SCH (08:14)
[2016-06-19] MEDS: Multivitamin Tab PO SCH (08:14)
[2016-06-19] MEDS: Potassium Chloride 10 MEQ Tab.ER PO SCH (08:14)
[2016-06-19] MEDS: Cholecalciferol (Vitamin D3) 1,000 Unit Tab PO SCH (08:14)
[2016-06-19] MEDS: Fenofibrate 160 MG Tab PO SCH (08:14)
[2016-06-19] MEDS: Nystatin Crm 30 GM Tube TOP SCH ×2 (08:15→19:48)
[2016-06-19] MEDS: Metoprolol Tartrate 50 MG Tab PO SCH ×2 (08:15→19:49)
[2016-06-19] MEDS: Lisinopril 10 MG Tab PO SCH (08:15)
[2016-06-19] MEDS: Magnesium Chloride 64 MG Tab.ER PO SCH (08:15)
[2016-06-19] MEDS: Clopidogrel 75 MG Tab PO SCH (08:15)
[2016-06-19] MEDS: Insuln Aspart Prot/Insulin Aspart 100 Units/ML 3 ML FlexPen SUBCUT SCH ×2 (08:16→17:24)
[2016-06-19] MEDS: Simvastatin 40 MG Tab PO SCH (19:48)
[2016-06-20 08:05] VITALS: BP 163/89
[2016-06-20] MEDS: Lisinopril 10 MG Tab PO SCH (08:10)
[2016-06-20] MEDS: Insuln Aspart Prot/Insulin Aspart 100 Units/ML 3 ML FlexPen SUBCUT SCH (08:10)
[2016-06-20] MEDS: Ascorbic Acid 500 MG Tab PO SCH (08:10)
[2016-06-20] MEDS: Magnesium Chloride 64 MG Tab.ER PO SCH (08:10)
[2016-06-20] MEDS: Metoprolol Tartrate 50 MG Tab PO SCH (08:11)
[2016-06-20] MEDS: Cholecalciferol (Vitamin D3) 1,000 Unit Tab PO SCH (08:11)
[2016-06-20] MEDS: Multivitamin Tab PO SCH (08:11)
[2016-06-20] MEDS: Aspirin 325 MG Tab.EC PO SCH (08:11)
[2016-06-20] MEDS: Clopidogrel 75 MG Tab PO SCH (08:11)
[2016-06-20] MEDS: Fenofibrate 160 MG Tab PO SCH (08:11)
[2016-06-20] MEDS: Potassium Chloride 10 MEQ Tab.ER PO SCH (08:12)
[2016-06-20] MEDS: Nystatin Crm 30 GM Tube TOP SCH (08:12)
--- NOTE | 2016-06-21 07:11 | DISCH ---
HOSPITAL COURSE: Robinson Acuna is an elderly gentleman who was admitted acute care after he fell and he injured his back. He was announced for PT/OT. We did do an MRI of his lumbar spine, did have a herniated disc. Continue PT. It should be noted, we did do a chest x-ray, because C-reactive protein was elevated and that showed the mass in his right hilum, which we just recalled a chest x-ray some 10 years ago, that mass was same. We did do a CT scan of his chest, which showed just the same mass consistent with a hamartoma, there is calcification that is nonmalignant. Urinalysis looks good. ProBNP was good. Magnesium a little bit low on admission, we will correct that. Otherwise, CBC panel looked good. DISPOSITION: The patient now discharged to shelter in [place]. DISCHARGE MEDICATIONS: Include ascorbic acid 1000 mg daily, ASA 325, vitamin D 2000 units, Plavix 75, Colace 100 b.i.d. p.r.n., Lopid 600 daily, NovoLog 70/30 20 units subcu in the morning, 40 units subcu in the evening, lisinopril 10 mg daily, magnesium chloride 64 mg daily, Lopressor 50 b.i.d., morphine 2 mg p.r.n., multivitamins, nitroglycerin p.r.n., Nitrostat p.r.n., potassium chloride 40 mg daily, Zocor 80 mg at bedtime. DISCHARGE DIAGNOSIS: 1. BACK INJURY, HERNIATED DISC. 2. DIABETES MELLITUS. 3. HYPERTENSION. 4. CORONARY ARTERY DISEASE. 5. HYPERLIPIDEMIA. 6. HISTORY OF HAMARTOMA, ELEVATED C-REACTIVE PROTEIN QUESTION ETIOLOGY. MICHAEL/BRITNEY /[id number]
== END 2016-06-20 09:45 | DRG 950 ==
LOC: CC.MS 13:03 → UNDOADMIN 13:03
PROVIDERS: ADMIT General Practice; ATTEND General Practice
DX: S33.101 Dislocation of unspecified lumbar vertebra (principal); W19.XXXD Unspecified fall, subsequent encounter; D49.1 Neoplasm of unspecified behavior of respiratory system; Z79.82 Long term (current) use of aspirin; E11.9 Type 2 diabetes mellitus without complications; I10 Essential (primary) hypertension; Z79.4 Long term (current) use of insulin; I25.10 Atherosclerotic heart disease of native coronary artery without angina pectoris; E78.5 Hyperlipidemia, unspecified; Z87.891 Personal history of nicotine dependence; Z95.1 Presence of aortocoronary bypass graft; N40.0 Benign prostatic hyperplasia without lower urinary tract symptoms; Z96.652 Presence of left artificial knee joint; M25.562 Pain in left knee
CPT/HCPCS: 36415; 71010; 71260; 80048; 82962; 83735; 86140; 97530-GP; A9270-GY; Q9967

== ENCOUNTER 2019-04-02 10:46 | Inpatient (IN) | payer MEDICARE, OTHER ==
[2019-04-02 11:30] LABS: CHLORIDE,CL 102 mEq/L (98-106); SODIUM,NA 138 mEq/L (136-145)
--- NOTE | 2019-04-02 14:32 | EDM.PDOC ---
ED HPI GENERAL MEDICAL PROBLEM - General Chief Complaint: Neuro Symptoms/Deficits Stated Complaint: FELL YESTEDAY Time Seen by Provider: 04/02/19 11:05 Source of Information: Reports: Patient, Family History Limitations: Reports: No Limitations - History of Present Illness INITIAL COMMENTS - FREE TEXT/NARRATIVE: Patient presents to ER with complaints of dizziness, unsteady gait and slurred speech. Stepson relates that on Monday when talking to him, his speech didn't sound as clear as his norm. Was at his daughter's over the weekend, did struggle at times with balance. Family relate that he has seemed "off for the last 5 days". He did fall yesterday, denied any head trauma. States tripped and fell in the snow. Does note dizziness when getting up at times, feels unsteady. Today, son was visiting with him and he seemed harder to understand. Has a history of hyperparathyroidism, had 2 glands of his parathyroid removed 3 years ago. Calcium was very high at that time. Family relates seems similar to when that happened. History of TIA. Is currently on Plavix. - Related Data Allergies Allergy/AdvReac Type Severity Reaction Status Date / Time No Known Allergies Allergy Verified 04/02/19 11:15 Home Meds: Home Meds Ascorbic Acid [Vitamin C] 1,000 mg PO DAILY 06/11/16 [History] Aspirin 325 mg PO DAILY 06/11/16 [History] Cholecalciferol (Vitamin D3) [Vitamin D3] 2,000 unit PO DAILY 06/11/16 [History] Clopidogrel Bisulfate [Plavix] 75 mg PO DAILY 06/11/16 [History] Fenofibrate [Lofibra] 160 mg PO DAILY 06/11/16 [History] Insulin NPH/Insulin Reg,Human [HumuLIN 70-30 Pen] 40 unit SQ QAM 06/11/16 [ History] Metoprolol Tartrate [Lopressor] 50 mg PO BID 06/11/16 [History] Multivitamin [Multivitamins] 1 cap PO DAILY 06/11/16 [History] Nitroglycerin [Nitrostat] 0.4 mg PO ASDIRECTED PRN 06/11/16 [History] Simvastatin [Zocor] 80 mg PO DAILY 06/11/16 [History] Insulin NPH/Insulin Reg,Human [HumuLIN 70-30 Pen] 30 unit SUBCUT WITHDINNER [History] Lisinopril [Prinivil] 10 mg PO DAILY tablet 06/20/16 [Rx] Magnesium Oxide 500 mg PO DAILY 30 Days tablet 06/20/16 [Rx] Nystatin [Nystatin Crm] 0 gm TOP BID tube 06/20/16 [Rx] Potassium Chloride [Klor-Con 10] 40 meq PO DAILY tab.er 06/20/16 [Rx] Past Medical History Cardiovascular History: Reports: High Cholesterol, Hypertension, Stents Genitourinary History: Reports: BPH Endocrine/Metabolic History: Reports: Diabetes, Type II - Past Surgical History Musculoskeletal Surgical History: Reports: Knee Replacement Social & Family History - Family History Family Medical History: Noncontributory - Caffeine Use Caffeine Use: Reports: Coffee ED ROS GENERAL - Review of Systems Review Of Systems: See Below Constitutional: Reports: Weakness, Fatigue, Other (does admit that he had trouble swallowing his coffee this am, nothing otherwise. Started coughing while drinking and "felt like he was choking". ). Denies: Fever, Chills, Malaise, Decreased Appetite HEENT: Reports: Vertigo. Denies: Ear Pain, Hearing Loss, Sinus Problem Respiratory: Denies: Shortness of Breath, Cough Cardiovascular: Denies: Chest Pain, Edema, Lightheadedness Endocrine: Reports: Fatigue GI/Abdominal: Denies: Abdominal Pain, Black Stool, Bloody Stool, Nausea, Vomiting : Reports: No Symptoms Musculoskeletal: Reports: No Symptoms Skin: Reports: No Symptoms Neurological: Reports: Difficulty Walking, Weakness, Gait Disturbance ED EXAM, DIZZINESS - Physical Exam Exam: See Below Exam Limited By: No Limitations General Appearance: Alert, WD/WN, No Apparent Distress Eye Exam: Bilateral Eye: EOMI, PERRL Ears: Normal External Exam, Normal TMs Nose: Normal Inspection, Normal Mucosa, No Blood Throat/Mouth: Normal Inspection, Normal Oropharynx Head Exam: Normocephalic Neck: Normal Inspection, Supple, Non-Tender Respiratory/Chest: No Respiratory Distress, Lungs Clear, Normal Breath Sounds Cardiovascular: Regular Rate, Rhythm GI/Abdominal: Normal Bowel Sounds, Soft, Non-Tender Neurological: Alert, Normal Mood/Affect, Oriented x 3, Difficulty Walking ( unsteady gait) Extremities: Normal Inspection, Normal Range of Motion, Other (extremity strength equal throughout.) Skin Exam: Warm, Dry Course - Orders/Labs/Meds Orders: Active Orders 24 hr Category Date Time Status EKG Documentation Completion [RC] STAT Care 04/02/19 11:16 Active Head wo Cont [CT] Stat Exams 04/02/19 11:16 Taken UA RFX JEFFERSON AND CULT IF INDIC [URIN] Stat Lab 04/02/19 11:08 Received Labs: Laboratory Tests 04/02/19 04/02/19 04/02/19 Range/Units 11:08 11:08 11:08 WBC 8.1 (5.0-10.0) 10^3/uL RBC 4.84 (4.50-6.00) 10^6/uL Hgb 16.2 (14.0-18.0) g/dL Hct 46.4 (40.0-54.0) % MCV 95.9 H (82.0-94.0) fL MCH 33.5 H (27.0-32.0) pg MCHC 34.9 (33.0-38.0) g/dL RDW Coeff of George 12.6 (11.0-15.0) % Plt Count 248 (150-400) 10^3/uL Neut % (Auto) 63.9 (35-85) % Lymph % (Auto) 20.2 (10-55) % [place] % (Auto) 13.5 (0-16) % Eos % (Auto) 1.8 (0-5) % Baso % (Auto) 0.6 (0-3) % Neut # (Auto) 5.19 (1.80-7.00) 10^3/uL Lymph # (Auto) 1.64 (1.00-4.80) 10^3/uL [place] # (Auto) 1.10 H (0.00-0.80) 10^3/uL Eos # (Auto) 0.15 (0.00-0.45) 10^3/uL Baso # (Auto) 0.05 10^3/uL PT 10.3 (9.7-12.3) SEC INR 1.00 (0.92-1.18) APTT 26.5 (23.2-32.3) SEC Sodium 138 (136-145) mEq/L Potassium 3.8 (3.5-5.0) mEq/L Chloride 102 (98-106) mEq/L Carbon Dioxide 23 (21-32) mmol/L BUN 13 (7-18) mg/dL Creatinine 0.9 (0.7-1.3) mg/dL Est Cr Clr Drug Dosing TNP Estimated GFR (MDRD) > 60 (>=60) mL/min Glucose 296 H D (75-99) mg/dL Calcium 8.2 L (8.4-10.1) mg/dL Lactate Dehydrogenase 160 (100-190) U/L Creatine Kinase 47 (35-232) U/L Troponin I < 0.017 (0.00-0.06) ng/mL - Re-Assessments/Exams Free Text/Narrative Re-Assessment/Exam: 04/02/19 Patient's labs are normal. EKG shows NSR. Head CT negative. Stroke scale 2. Will admit for neuro checks/cardiac monitoring. Departure - Departure Time of Disposition: 13:05 Disposition: Refer to Observation Condition: Fair Clinical Impression: Weakness, Dizziness, Unsteady gait - Discharge Information *PRESCRIPTION DRUG MONITORING PROGRAM REVIEWED*: Not Applicable *COPY OF PRESCRIPTION DRUG MONITORING REPORT IN PATIENT PHILIP: Not Applicable Sepsis Event Note - Focused Exam Date Exam was Performed: 04/02/19 Time Exam was Performed: 14:35 - Problem List & Annotations (1) Weakness SNOMED Code(s): 80132881 Code(s): R53.1 - WEAKNESS Status: Acute Priority: High Current Visit: Yes (2) Dizziness SNOMED Code(s): 469889824, 757946250 Code(s): R42 - DIZZINESS AND GIDDINESS Status: Acute Priority: High Current Visit: Yes (3) Unsteady gait SNOMED Code(s): 841218228, 124661450 Code(s): R26.81 - UNSTEADINESS ON FEET Status: Acute Priority: High Current Visit: Yes - Problem List Review Problem List Initiated/Reviewed/Updated: Yes - My Orders Last 24 Hours: My Active Orders 04/02/19 11:08 UA RFX JEFFERSON AND CULT IF INDIC [URIN] Stat 04/02/19 11:16 EKG Documentation Completion [RC] STAT Head wo Cont [CT] Stat - Assessment/Plan Admission H&P: Please use this note as an admission H&P Last 24 Hours: My Active Orders 04/02/19 11:08 UA RFX JEFFERSON AND CULT IF INDIC [URIN] Stat 12/31/19 11:16 EKG Documentation Completion [RC] STAT Head wo Cont [CT] Stat Assessment:: Weakness Unsteady Gait Dizziness Plan: Admit to observation. will continue to monitor neuro status. Assist with ambulation/Physical therapy as directed. Consider MRI on Monday.
[2019-04-02] MEDS ORDERED: Ondansetron 4 MG Tab.DIS PO PRN (14:45)
[2019-04-02] MEDS ORDERED: Temazepam 15 MG Cap PO PRN (14:45)
[2019-04-02] MEDS ORDERED: Sodium Chloride 0.9% 10 ML Syringe FLUSH PRN (14:45)
[2019-04-02] MEDS: Enoxaparin 40 MG/0.4 ML Syringe SUBCUT SCH (16:17)
[2019-04-02] MEDS: Metoprolol Tartrate 50 MG Tab**OWN MED PO SCH (19:56)
[2019-04-02] MEDS: Insulin Glargine,Human Rec. Analog 100 Units/ML 3 ML Pen SUBCUT SCH (19:57)
[2019-04-02] MEDS ORDERED: Metoprolol Tartrate 50 MG Tab PO SCH (20:00)
[2019-04-02] MEDS: Simvastatin 40 MG Tab**OWN MED PO SCH (20:02)
[2019-04-03] MEDS: Metoprolol Tartrate 50 MG Tab**OWN MED PO SCH ×2 (07:10→19:12)
[2019-04-03] MEDS: Ascorbic Acid 500 MG Tab PO SCH (07:10)
[2019-04-03] MEDS: Aspirin 81 MG Tab.EC PO SCH (07:11)
[2019-04-03 07:30] LABS: CHLORIDE,CL 105 mEq/L (98-106); SODIUM,NA 143 mEq/L (136-145)
[2019-04-03] MEDS ORDERED: Simvastatin 40 MG Tab PO SCH (08:00)
--- NOTE | 2019-04-03 14:15 | PCM.PN ---
- General Info Date of Service: 04/03/19 Subjective Update: Robinson is an 83 yo male who was admitted to the hospital for dizziness, slurred speech and unsteady gait. He admits he thinks it may have been alcohol that caused him to have some slurred speech. He admits he hasn't had a drink in a few days now and doesn't feel his words are slurred anymore. States he continues to have some weakness but is getting around with a walker. Functional Status: Reports: Pain Controlled, Tolerating Diet - Review of Systems General: Reports: No Symptoms, Weakness HEENT: Reports: Other (vertigo) Pulmonary: Denies: Shortness of Breath, Cough, Sputum Cardiovascular: Denies: Chest Pain, Palpitations, Lightheadedness Gastrointestinal: Denies: Abdominal Pain, Decreased Appetite, Nausea, Vomiting Genitourinary: Reports: No Symptoms Musculoskeletal: Reports: No Symptoms Skin: Reports: No Symptoms Neurological: Reports: Gait Disturbance. Denies: Difficulty Walking, Change in Speech - Patient Data Vitals - Most Recent: Last Vital Signs Temp 98.7 F 04/03/19 12:00 Pulse 67 04/03/19 12:00 Resp 18 04/03/19 12:00 BP 161/73 H 04/03/19 12:00 Pulse Ox 98 04/03/19 12:00 Weight - Most Recent: 225 lb Lab Results Last 24 Hours: Laboratory Results - last 24 hr 04/02/19 04/02/19 04/03/19 Range/Units 17:23 20:05 06:50 WBC 6.6 (5.0-10.0) 10^3/uL RBC 4.74 (4.50-6.00) 10^6/uL Hgb 15.7 (14.0-18.0) g/dL Hct 45.9 (40.0-54.0) % MCV 96.8 H (82.0-94.0) fL MCH 33.1 H (27.0-32.0) pg MCHC 34.2 (33.0-38.0) g/dL RDW Coeff of George 12.5 (11.0-15.0) % Plt Count 250 (150-400) 10^3/uL Neut % (Auto) 50.2 (35-85) % Lymph % (Auto) 29.9 (10-55) % [place] % (Auto) 15.8 (0-16) % Eos % (Auto) 3.5 (0-5) % Baso % (Auto) 0.6 (0-3) % Neut # (Auto) 3.33 (1.80-7.00) 10^3/uL Lymph # (Auto) 1.98 (1.00-4.80) 10^3/uL [place] # (Auto) 1.05 H (0.00-0.80) 10^3/uL Eos # (Auto) 0.23 (0.00-0.45) 10^3/uL Baso # (Auto) 0.04 10^3/uL Sodium (136-145) mEq/L Potassium (3.5-5.0) mEq/L Chloride (98-106) mEq/L Carbon Dioxide (21-32) mmol/L BUN (7-18) mg/dL Creatinine (0.7-1.3) mg/dL Est Cr Clr Drug Dosing mL/min Estimated GFR (MDRD) (>=60) mL/min Glucose (75-99) mg/dL POC Glucose 317 H 393 H (75-105) mg/dl Calcium (8.4-10.1) mg/dL C-Reactive Protein (0.2-0.8) mg/dL 04/03/19 04/03/19 Range/Units 06:50 11:25 WBC (5.0-10.0) 10^3/uL RBC (4.50-6.00) 10^6/uL Hgb (14.0-18.0) g/dL Hct (40.0-54.0) % MCV (82.0-94.0) fL MCH (27.0-32.0) pg MCHC (33.0-38.0) g/dL RDW Coeff of George (11.0-15.0) % Plt Count (150-400) 10^3/uL Neut % (Auto) (35-85) % Lymph % (Auto) (10-55) % [place] % (Auto) (0-16) % Eos % (Auto) (0-5) % Baso % (Auto) (0-3) % Neut # (Auto) (1.80-7.00) 10^3/uL Lymph # (Auto) (1.00-4.80) 10^3/uL [place] # (Auto) (0.00-0.80) 10^3/uL Eos # (Auto) (0.00-0.45) 10^3/uL Baso # (Auto) 10^3/uL Sodium 143 (136-145) mEq/L Potassium 3.5 (3.5-5.0) mEq/L Chloride 105 (98-106) mEq/L Carbon Dioxide 27 (21-32) mmol/L BUN 11 (7-18) mg/dL Creatinine 0.8 (0.7-1.3) mg/dL Est Cr Clr Drug Dosing 74.10 mL/min Estimated GFR (MDRD) > 60 (>=60) mL/min Glucose 156 H D (75-99) mg/dL POC Glucose 239 H (75-105) mg/dl Calcium 8.3 L (8.4-10.1) mg/dL C-Reactive Protein 1.7 H (0.2-0.8) mg/dL Med Orders - Current: Current Medications Ascorbic Acid (Vitamin C) 1,000 mg PO DAILY [facility] Last Admin: 04/03/19 07:10 Dose: 1,000 mg Aspirin (Halfprin) 81 mg PO DAILY [facility] Last Admin: 04/03/19 07:11 Dose: 81 mg Enoxaparin Sodium (Lovenox) 40 mg SUBCUT Q24H [facility] Last Admin: 04/02/19 16:17 Dose: 40 mg Insulin Glargine (Lantus Solostar) 50 units SUBCUT BEDTIME [facility] Last Admin: 04/02/19 19:57 Dose: 60 units Magnesium Oxide (Magnesium Oxide) 500 mg PO DAILY [facility] Last Admin: 04/03/19 07:10 Dose: 500 mg Metoprolol Tartrate (Lopressor) 50 mg PO BID [facility] Last Admin: 04/03/19 07:10 Dose: 50 mg Ondansetron HCl (Zofran Odt) 4 mg PO Q4H PRN PRN Reason: nausea, able to take PO Simvastatin (Zocor) 80 mg PO BEDTIME [facility] Last Admin: 04/02/19 20:02 Dose: 80 mg Sodium Chloride (Saline Flush) 10 ml FLUSH ASDIRECTED PRN PRN Reason: Keep Vein Open Temazepam (Restoril) 15 mg PO BEDTIME PRN PRN Reason: Sleep Discontinued Medications Metoprolol Tartrate (Lopressor) 50 mg PO BID [facility] Simvastatin (Zocor) 80 mg PO DAILY [facility] - Exam General: Alert, Oriented, Cooperative, No Acute Distress HEENT: Pupils Equal, Pupils Reactive, EOMI, Mucous Membr. Moist/[place] Neck: Supple Lungs: Clear to Auscultation, Normal Respiratory Effort Cardiovascular: Regular Rate, Regular Rhythm GI/Abdominal Exam: Normal Bowel Sounds, Soft, No Distention Extremities: Normal Inspection, No Pedal Edema, Normal Capillary Refill Skin: Warm, Dry, Intact Neurological: No New Focal Deficit. No: Normal Gait (unsteady) Psy/Mental Status: Alert, Normal Affect Sepsis Event Note - Evaluation Sepsis Screening Result: No Definite Risk - Focused Exam Vital Signs: Vital Signs Temp Pulse Pulse Resp BP BP Pulse Ox 04/03/19 12:00 98.7 F 67 18 161/73 H 98 04/03/19 07:10 85 172/66 H 04/03/19 06:54 98.9 F 76 18 166/72 H 97 04/03/19 04:00 97.2 F 80 16 172/75 H 97 Date Exam was Performed: 04/03/19 Time Exam was Performed: 14:09 - Problem List & Annotations (1) Dizziness SNOMED Code(s): 013204372, 447765083 Code(s): R42 - DIZZINESS AND GIDDINESS Status: Acute Priority: High Current Visit: Yes (2) Unsteady gait SNOMED Code(s): 469501995, 055817498 Code(s): R26.81 - UNSTEADINESS ON FEET Status: Acute Priority: High Current Visit: Yes (3) Weakness SNOMED Code(s): 51779071 Code(s): R53.1 - WEAKNESS Status: Acute Priority: High Current Visit: Yes - Problem List Review Problem List Initiated/Reviewed/Updated: Yes - My Orders Last 24 Hours: My Active Orders 04/03/19 08:00 Ascorbic Acid [Vitamin C] 1,000 mg PO DAILY Aspirin [Halfprin] 81 mg PO DAILY Magnesium Oxide 500 mg PO DAILY 04/02/19 20:00 Insulin Glarg,Human.Rec.Analog [LantUS Solostar] 50 units SUBCUT BEDTIME Metoprolol Tartrate [Lopressor] 50 mg PO BID Simvastatin [Zocor] 80 mg PO BEDTIME - Plan Plan:: Robinson has overall been doing well. continues to have some unsteadiness with his gait. Speech if fluent. Will continue to monitor neuro status and will look into MRI of the brain on Monday. Carotid duplex tomorrow.
[2019-04-03] MEDS: Enoxaparin 40 MG/0.4 ML Syringe SUBCUT SCH (15:53)
[2019-04-03] MEDS: Insulin Glargine,Human Rec. Analog 100 Units/ML 3 ML Pen SUBCUT SCH (19:12)
[2019-04-03] MEDS: Simvastatin 40 MG Tab**OWN MED PO SCH (19:12)
[2019-04-04] MEDS: Aspirin 81 MG Tab.EC PO SCH (08:15)
[2019-04-04] MEDS: Metoprolol Tartrate 50 MG Tab**OWN MED PO SCH (08:15)
[2019-04-04] MEDS: Ascorbic Acid 500 MG Tab PO SCH (08:15)
--- NOTE | 2019-04-04 09:16 | PCM.PN ---
- General Info Date of Service: 04/04/19 Admission Dx/Problem (Free Text): TIA Weakness Unsteady gait Dizziness Functional Status: Reports: Pain Controlled, Tolerating Diet. Denies: Ambulating - Review of Systems General: Reports: Weakness, Fatigue. Denies: Malaise HEENT: Denies: Headaches, Sore Throat Pulmonary: Denies: Shortness of Breath, Cough, Wheezing Cardiovascular: Denies: Chest Pain, Edema, Lightheadedness Gastrointestinal: Denies: Abdominal Pain, Nausea, Vomiting Genitourinary: Reports: No Symptoms Musculoskeletal: Reports: No Symptoms Skin: Reports: No Symptoms Neurological: Reports: Weakness - Patient Data Vitals - Most Recent: Last Vital Signs Temp 98.2 F 04/04/19 08:00 Pulse 78 04/04/19 08:15 Resp 18 04/04/19 08:00 BP 170/77 H 04/04/19 08:15 Pulse Ox 95 04/04/19 08:00 Weight - Most Recent: 225 lb Lab Results Last 24 Hours: Laboratory Results - last 24 hr 04/03/19 04/03/19 04/03/19 Range/Units 11:25 15:51 19:34 POC Glucose 239 H 279 H 342 H (75-105) mg/dl 04/04/19 Range/Units 07:44 POC Glucose 158 H (75-105) mg/dl Med Orders - Current: Current Medications Amlodipine Besylate (Norvasc) 5 mg PO BEDTIME [facility] Ascorbic Acid (Vitamin C) 1,000 mg PO DAILY [facility] Last Admin: 04/04/19 08:15 Dose: 1,000 mg Aspirin (Halfprin) 81 mg PO DAILY [facility] Last Admin: 04/04/19 08:15 Dose: 81 mg Enoxaparin Sodium (Lovenox) 40 mg SUBCUT Q24H [facility] Last Admin: 04/03/19 15:53 Dose: 40 mg Insulin Glargine (Lantus Solostar) 50 units SUBCUT BEDTIME [facility] Last Admin: 04/03/19 19:12 Dose: 50 units Magnesium Oxide (Magnesium Oxide) 500 mg PO DAILY [facility] Last Admin: 04/04/19 08:15 Dose: 500 mg Metoprolol Tartrate (Lopressor) 50 mg PO BID [facility] Last Admin: 04/04/19 08:15 Dose: 50 mg Ondansetron HCl (Zofran Odt) 4 mg PO Q4H PRN PRN Reason: nausea, able to take PO Simvastatin (Zocor) 80 mg PO BEDTIME [facility] Last Admin: 04/03/19 19:12 Dose: 80 mg Sodium Chloride (Saline Flush) 10 ml FLUSH ASDIRECTED PRN PRN Reason: Keep Vein Open Temazepam (Restoril) 15 mg PO BEDTIME PRN PRN Reason: Sleep Discontinued Medications Metoprolol Tartrate (Lopressor) 50 mg PO BID [facility] Simvastatin (Zocor) 80 mg PO DAILY [facility] - Exam General: Alert, Oriented HEENT: Mucous Membr. Moist/[employer] Neck: Supple Lungs: Clear to Auscultation, Normal Respiratory Effort Cardiovascular: Regular Rate, Regular Rhythm GI/Abdominal Exam: Normal Bowel Sounds, Soft, Non-Tender Extremities: Normal Range of Motion Neurological: Normal Speech, Strength Equal Bilateral, Other (unsteady gait) Sepsis Event Note - Evaluation Sepsis Screening Result: No Definite Risk - Focused Exam Vital Signs: Vital Signs Temp Pulse Pulse Resp BP BP Pulse Ox 04/04/19 08:15 78 170/77 H 04/04/19 08:00 98.2 F 78 18 170/77 H 95 04/04/19 04:00 97.8 F 78 18 167/78 H 97 04/04/19 00:00 97.9 F 18 160/66 H 95 Date Exam was Performed: 04/04/19 Time Exam was Performed: 09:06 - Problem List & Annotations (1) Weakness SNOMED Code(s): 83486640 Code(s): R53.1 - WEAKNESS Status: Acute Priority: High Current Visit: Yes (2) Dizziness SNOMED Code(s): 921975066, 071986753 Code(s): R42 - DIZZINESS AND GIDDINESS Status: Acute Priority: High Current Visit: Yes (3) Unsteady gait SNOMED Code(s): 455580991, 493628223 Code(s): R26.81 - UNSTEADINESS ON FEET Status: Acute Priority: High Current Visit: Yes - Problem List Review Problem List Initiated/Reviewed/Updated: Yes - My Orders Last 24 Hours: My Active Orders 04/04/19 09:00 Patient Status [ADT] Routine 04/04/19 09:01 Ang Head wo Cont [MR] Routine Ang Neck wo Cont [MR] Routine Brain wo Cont [MR] Routine 04/04/19 20:00 amLODIPine [Norvasc] 5 mg PO BEDTIME - Assessment Assessment:: Weakness Dizziness Unsteady gait - Plan Plan:: Robinson has overall been doing well. continues to have some unsteadiness with his gait. Speech if fluent. Will continue to monitor neuro status and will look into MRI of the brain on Monday. Carotid duplex tomorrow. 04-04-2019 Patient is feeling better, speech is clearer today. Does still have unsteady gait with walker. Strengths are equal but patient feels weak. Blood pressure has been running high over the last 2 days, this am 175/72. Afebrile. Labs have been stable. Will transfer to acute inpatient. obtain MRI of brain. MRA of head and neck. Patient will continue Plavix and aspirin. Physical therapy for balance/ strengthening.
[2019-04-04] MEDS: Insulin Lispro 100 Units/ML 3 ML Vial SUBCUT SCH ×3 (11:48→20:04)
[2019-04-04] MEDS: Enoxaparin 40 MG/0.4 ML Syringe SUBCUT SCH (15:40)
[2019-04-04] MEDS: amLODIPine 2.5 MG Tab PO SCH (19:33)
[2019-04-04] MEDS: Metoprolol Tartrate 50 MG Tab PO SCH (19:33)
[2019-04-04] MEDS: Simvastatin 40 MG Tab PO SCH (19:34)
[2019-04-04] MEDS: Insulin Glargine,Human Rec. Analog 100 Units/ML 3 ML Pen SUBCUT SCH (19:35)
[2019-04-05] MEDS: Metoprolol Tartrate 50 MG Tab PO SCH ×2 (07:41→19:42)
[2019-04-05] MEDS: Ascorbic Acid 500 MG Tab PO SCH (07:42)
[2019-04-05] MEDS: Aspirin 81 MG Tab.EC PO SCH (07:43)
[2019-04-05] MEDS: Insulin Lispro 100 Units/ML 3 ML Vial SUBCUT SCH ×4 (07:44→20:15)
[2019-04-05 08:01] LABS: CHLORIDE,CL 105 mEq/L (98-106); SODIUM,NA 142 mEq/L (136-145)
--- NOTE | 2019-04-05 09:15 | PCM.PN ---
- General Info Date of Service: 04/05/19 Admission Dx/Problem (Free Text): TIA Weakness Unsteady gait Dizziness Functional Status: Reports: Pain Controlled, Tolerating Diet, Ambulating - Review of Systems General: Reports: Weakness, Fatigue, Malaise. Denies: Fever HEENT: Denies: Ear Pain, Headaches, Sinus Congestion, Visual Changes Pulmonary: Denies: Shortness of Breath, Cough Cardiovascular: Denies: Chest Pain, Edema, Lightheadedness Gastrointestinal: Denies: Abdominal Pain, Nausea, Vomiting Genitourinary: Reports: No Symptoms Musculoskeletal: Reports: No Symptoms Skin: Reports: No Symptoms Neurological: Reports: Weakness, Other (gait is improving) - Patient Data Vitals - Most Recent: Last Vital Signs Temp 97.6 F 04/05/19 08:00 Pulse 76 04/05/19 08:00 Resp 18 04/05/19 08:00 BP 149/59 H 04/05/19 08:00 Pulse Ox 96 04/05/19 08:00 Weight - Most Recent: 225 lb Lab Results Last 24 Hours: Laboratory Results - last 24 hr 04/04/19 04/04/19 04/04/19 Range/Units 11:25 17:19 19:32 WBC (5.0-10.0) 10^3/uL RBC (4.50-6.00) 10^6/uL Hgb (14.0-18.0) g/dL Hct (40.0-54.0) % MCV (82.0-94.0) fL MCH (27.0-32.0) pg MCHC (33.0-38.0) g/dL RDW Coeff of George (11.0-15.0) % Plt Count (150-400) 10^3/uL Neut % (Auto) (35-85) % Lymph % (Auto) (10-55) % [place] % (Auto) (0-16) % Eos % (Auto) (0-5) % Baso % (Auto) (0-3) % Neut # (Auto) (1.80-7.00) 10^3/uL Lymph # (Auto) (1.00-4.80) 10^3/uL [place] # (Auto) (0.00-0.80) 10^3/uL Eos # (Auto) (0.00-0.45) 10^3/uL Baso # (Auto) 10^3/uL Sodium (136-145) mEq/L Potassium (3.5-5.0) mEq/L Chloride (98-106) mEq/L Carbon Dioxide (21-32) mmol/L BUN (7-18) mg/dL Creatinine (0.7-1.3) mg/dL Est Cr Clr Drug Dosing mL/min Estimated GFR (MDRD) (>=60) mL/min Glucose (75-99) mg/dL POC Glucose 296 H 249 H 336 H (75-105) mg/dl Calcium (8.4-10.1) mg/dL C-Reactive Protein (0.2-0.8) mg/dL 04/05/19 04/05/19 04/05/19 Range/Units 07:00 07:00 07:38 WBC 8.5 (5.0-10.0) 10^3/uL RBC 4.92 (4.50-6.00) 10^6/uL Hgb 16.3 (14.0-18.0) g/dL Hct 47.5 (40.0-54.0) % MCV 96.5 H (82.0-94.0) fL MCH 33.1 H (27.0-32.0) pg MCHC 34.3 (33.0-38.0) g/dL RDW Coeff of George 12.5 (11.0-15.0) % Plt Count 264 (150-400) 10^3/uL Neut % (Auto) 57.7 (35-85) % Lymph % (Auto) 25.1 (10-55) % [place] % (Auto) 12.3 (0-16) % Eos % (Auto) 4.0 (0-5) % Baso % (Auto) 0.9 (0-3) % Neut # (Auto) 4.90 (1.80-7.00) 10^3/uL Lymph # (Auto) 2.14 (1.00-4.80) 10^3/uL [place] # (Auto) 1.05 H (0.00-0.80) 10^3/uL Eos # (Auto) 0.34 (0.00-0.45) 10^3/uL Baso # (Auto) 0.08 10^3/uL Sodium 142 (136-145) mEq/L Potassium 4.0 (3.5-5.0) mEq/L Chloride 105 (98-106) mEq/L Carbon Dioxide 27 (21-32) mmol/L BUN 11 (7-18) mg/dL Creatinine 0.9 (0.7-1.3) mg/dL Est Cr Clr Drug Dosing 65.86 mL/min Estimated GFR (MDRD) > 60 (>=60) mL/min Glucose 154 H (75-99) mg/dL POC Glucose 146 H (75-105) mg/dl Calcium 8.6 (8.4-10.1) mg/dL C-Reactive Protein 1.8 H (0.2-0.8) mg/dL Med Orders - Current: Current Medications Amlodipine Besylate (Norvasc) 5 mg PO BEDTIME [facility] Last Admin: 04/04/19 19:33 Dose: 5 mg Ascorbic Acid (Vitamin C) 1,000 mg PO DAILY [facility] Last Admin: 04/05/19 07:42 Dose: 1,000 mg Aspirin (Halfprin) 81 mg PO DAILY [facility] Last Admin: 04/05/19 07:43 Dose: 81 mg Enoxaparin Sodium (Lovenox) 40 mg SUBCUT Q24H [facility] Last Admin: 04/04/19 15:40 Dose: 40 mg Insulin Glargine (Lantus Solostar) 50 units SUBCUT BEDTIME [facility] Last Admin: 04/04/19 19:35 Dose: 50 units Insulin Human Lispro (Humalog) 0 unit SUBCUT WITHMEALSANDBED [facility]; Protocol Last Admin: 04/05/19 07:44 Dose: Not Given Magnesium Oxide (Magnesium Oxide) 500 mg PO DAILY [facility] Last Admin: 04/05/19 07:43 Dose: 500 mg Metoprolol Tartrate (Lopressor) 50 mg PO BID [facility] Last Admin: 04/05/19 07:41 Dose: 50 mg Ondansetron HCl (Zofran Odt) 4 mg PO Q4H PRN PRN Reason: nausea, able to take PO Simvastatin (Zocor) 80 mg PO BEDTIME [facility] Last Admin: 04/04/19 19:34 Dose: 80 mg Sodium Chloride (Saline Flush) 10 ml FLUSH ASDIRECTED PRN PRN Reason: Keep Vein Open Temazepam (Restoril) 15 mg PO BEDTIME PRN PRN Reason: Sleep Discontinued Medications Metoprolol Tartrate (Lopressor) 50 mg PO BID [facility] Metoprolol Tartrate (Lopressor) 50 mg PO BID [facility] Last Admin: 04/04/19 08:15 Dose: 50 mg Simvastatin (Zocor) 80 mg PO DAILY [facility] Simvastatin (Zocor) 80 mg PO BEDTIME [facility] Last Admin: 04/03/19 19:12 Dose: 80 mg - Exam General: Alert, Oriented HEENT: Mucous Membr. Moist/[place] Neck: Supple Lungs: Clear to Auscultation, Normal Respiratory Effort Cardiovascular: Regular Rate, Regular Rhythm GI/Abdominal Exam: Normal Bowel Sounds, Soft, Non-Tender Extremities: Normal Inspection, No Pedal Edema Skin: Warm, Dry Neurological: No New Focal Deficit Sepsis Event Note - Evaluation Sepsis Screening Result: No Definite Risk - Focused Exam Vital Signs: Vital Signs Temp Pulse Pulse Resp BP BP Pulse Ox 04/05/19 08:00 97.6 F 76 18 149/59 H 96 04/05/19 07:41 76 146/59 H 04/05/19 04:00 97.2 F 75 18 158/62 H 97 04/04/19 23:40 97.2 F 75 18 151/68 H 97 Date Exam was Performed: 04/05/19 Time Exam was Performed: 09:09 - Problem List & Annotations (1) Weakness SNOMED Code(s): 92314637 Code(s): R53.1 - WEAKNESS Status: Acute Priority: High Current Visit: Yes (2) Dizziness SNOMED Code(s): 853102676, 967127674 Code(s): R42 - DIZZINESS AND GIDDINESS Status: Acute Priority: High Current Visit: Yes (3) Unsteady gait SNOMED Code(s): 770628712, 177256730 Code(s): R26.81 - UNSTEADINESS ON FEET Status: Acute Priority: High Current Visit: Yes - Problem List Review Problem List Initiated/Reviewed/Updated: Yes - My Orders Last 24 Hours: My Active Orders 04/04/19 09:00 Patient Status [ADT] Routine 04/04/19 09:01 Ang Head wo Cont [MR] Routine Ang Neck wo Cont [MR] Routine Brain wo Cont [MR] Routine 04/04/19 12:00 Insulin Lispro [HumaLOG] See Protocol SUBCUT WITHMEALSANDBED 04/04/19 20:00 amLODIPine [Norvasc] 5 mg PO BEDTIME - Assessment Assessment:: Weakness Dizziness Unsteady gait - Plan Plan:: Robinson has overall been doing well. continues to have some unsteadiness with his gait. Speech if fluent. Will continue to monitor neuro status and will look into MRI of the brain on Monday. Carotid duplex tomorrow. 04-04-2019 Patient is feeling better, speech is clearer today. Does still have unsteady gait with walker. Strengths are equal but patient feels weak. Blood pressure has been running high over the last 2 days, this am 175/72. Afebrile. Labs have been stable. Will transfer to acute inpatient. obtain MRI of brain. MRA of head and neck. Patient will continue Plavix and aspirin. Physical therapy for balance/ strengthening. 04-05-2019 Patient doing well, speech remains clear. Does feel his balance is better but still using a walker and standby assist. Neuro exam is normal, strengths are equal throughout. Blood pressure improved today 149/59. WBC normal at 8.5, CRP 1.8. Electrolytes normal. Continue PT. Obtain MRI/MRA today with stat read. If no acute concerns, possible discharge home tomorrow.
[2019-04-05] MEDS: Enoxaparin 40 MG/0.4 ML Syringe SUBCUT SCH (15:33)
[2019-04-05] MEDS: amLODIPine 2.5 MG Tab PO SCH (19:41)
[2019-04-05] MEDS: Simvastatin 40 MG Tab PO SCH (19:42)
[2019-04-05] MEDS: Insulin Glargine,Human Rec. Analog 100 Units/ML 3 ML Pen SUBCUT SCH (20:14)
[2019-04-06 07:56] LABS: CHLORIDE,CL 105 mEq/L (98-106); SODIUM,NA 142 mEq/L (136-145)
[2019-04-06] MEDS: Insulin Lispro 100 Units/ML 3 ML Vial SUBCUT SCH ×4 (08:21→20:18)
[2019-04-06] MEDS: Aspirin 81 MG Tab.EC PO SCH (08:22)
[2019-04-06] MEDS: Metoprolol Tartrate 50 MG Tab PO SCH ×2 (08:22→20:12)
[2019-04-06] MEDS: Ascorbic Acid 500 MG Tab PO SCH (08:22)
[2019-04-06] MEDS: Enoxaparin 40 MG/0.4 ML Syringe SUBCUT SCH (15:00)
--- NOTE | 2019-04-06 17:45 | PCM.PN ---
- General Info Date of Service: 04/06/19 Functional Status: Reports: Pain Controlled - Review of Systems General: Reports: Weakness (generalized) HEENT: Reports: No Symptoms Pulmonary: Reports: No Symptoms Cardiovascular: Reports: No Symptoms Gastrointestinal: Reports: No Symptoms Genitourinary: Reports: No Symptoms Musculoskeletal: Reports: No Symptoms Skin: Reports: No Symptoms Neurological: Reports: Difficulty Walking, Weakness (general per patient), Change in Speech (slurred, but understood), Gait Disturbance. Denies: Headache Psychiatric: Reports: No Symptoms - Patient Data Vitals - Most Recent: Last Vital Signs Temp 98.1 F 04/06/19 16:00 Pulse 77 04/06/19 16:00 Resp 24 H 04/06/19 16:00 BP 151/68 H 04/06/19 16:00 Pulse Ox 98 04/06/19 16:00 Weight - Most Recent: 223 lb 4.8 oz Lab Results Last 24 Hours: Laboratory Results - last 24 hr 04/05/19 04/05/19 04/06/19 Range/Units 17:21 20:11 07:04 WBC 10.4 H (5.0-10.0) 10^3/uL RBC 5.03 (4.50-6.00) 10^6/uL Hgb 16.5 (14.0-18.0) g/dL Hct 48.5 (40.0-54.0) % MCV 96.4 H (82.0-94.0) fL MCH 32.8 H (27.0-32.0) pg MCHC 34.0 (33.0-38.0) g/dL RDW Coeff of George 12.5 (11.0-15.0) % Plt Count 293 (150-400) 10^3/uL Neut % (Auto) 57.9 (35-85) % Lymph % (Auto) 26.1 (10-55) % [place] % (Auto) 12.7 (0-16) % Eos % (Auto) 2.8 (0-5) % Baso % (Auto) 0.5 (0-3) % Neut # (Auto) 6.01 (1.80-7.00) 10^3/uL Lymph # (Auto) 2.71 (1.00-4.80) 10^3/uL [place] # (Auto) 1.32 H (0.00-0.80) 10^3/uL Eos # (Auto) 0.29 (0.00-0.45) 10^3/uL Baso # (Auto) 0.05 10^3/uL Sodium (136-145) mEq/L Potassium (3.5-5.0) mEq/L Chloride (98-106) mEq/L Carbon Dioxide (21-32) mmol/L BUN (7-18) mg/dL Creatinine (0.7-1.3) mg/dL Est Cr Clr Drug Dosing mL/min Estimated GFR (MDRD) (>=60) mL/min Glucose (75-99) mg/dL POC Glucose 253 H 371 H (75-105) mg/dl Calcium (8.4-10.1) mg/dL 04/06/19 04/06/19 04/06/19 Range/Units 07:04 07:35 08:20 WBC (5.0-10.0) 10^3/uL RBC (4.50-6.00) 10^6/uL Hgb (14.0-18.0) g/dL Hct (40.0-54.0) % MCV (82.0-94.0) fL MCH (27.0-32.0) pg MCHC (33.0-38.0) g/dL RDW Coeff of George (11.0-15.0) % Plt Count (150-400) 10^3/uL Neut % (Auto) (35-85) % Lymph % (Auto) (10-55) % [place] % (Auto) (0-16) % Eos % (Auto) (0-5) % Baso % (Auto) (0-3) % Neut # (Auto) (1.80-7.00) 10^3/uL Lymph # (Auto) (1.00-4.80) 10^3/uL [place] # (Auto) (0.00-0.80) 10^3/uL Eos # (Auto) (0.00-0.45) 10^3/uL Baso # (Auto) 10^3/uL Sodium 142 (136-145) mEq/L Potassium 3.6 (3.5-5.0) mEq/L Chloride 105 (98-106) mEq/L Carbon Dioxide 28 (21-32) mmol/L BUN 11 (7-18) mg/dL Creatinine 0.8 (0.7-1.3) mg/dL Est Cr Clr Drug Dosing 74.10 mL/min Estimated GFR (MDRD) > 60 (>=60) mL/min Glucose 67 L D (75-99) mg/dL POC Glucose 68 L 133 H (75-105) mg/dl Calcium 8.4 (8.4-10.1) mg/dL 04/06/19 04/06/19 Range/Units 11:46 17:06 WBC (5.0-10.0) 10^3/uL RBC (4.50-6.00) 10^6/uL Hgb (14.0-18.0) g/dL Hct (40.0-54.0) % MCV (82.0-94.0) fL MCH (27.0-32.0) pg MCHC (33.0-38.0) g/dL RDW Coeff of George (11.0-15.0) % Plt Count (150-400) 10^3/uL Neut % (Auto) (35-85) % Lymph % (Auto) (10-55) % [place] % (Auto) (0-16) % Eos % (Auto) (0-5) % Baso % (Auto) (0-3) % Neut # (Auto) (1.80-7.00) 10^3/uL Lymph # (Auto) (1.00-4.80) 10^3/uL [place] # (Auto) (0.00-0.80) 10^3/uL Eos # (Auto) (0.00-0.45) 10^3/uL Baso # (Auto) 10^3/uL Sodium (136-145) mEq/L Potassium (3.5-5.0) mEq/L Chloride (98-106) mEq/L Carbon Dioxide (21-32) mmol/L BUN (7-18) mg/dL Creatinine (0.7-1.3) mg/dL Est Cr Clr Drug Dosing mL/min Estimated GFR (MDRD) (>=60) mL/min Glucose (75-99) mg/dL POC Glucose 212 H 331 H (75-105) mg/dl Calcium (8.4-10.1) mg/dL Med Orders - Current: Current Medications Amlodipine Besylate (Norvasc) 5 mg PO BEDTIME [facility] Last Admin: 04/05/19 19:41 Dose: 5 mg Ascorbic Acid (Vitamin C) 1,000 mg PO DAILY [facility] Last Admin: 04/06/19 08:22 Dose: 1,000 mg Aspirin (Halfprin) 81 mg PO DAILY [facility] Last Admin: 04/06/19 08:22 Dose: 81 mg Enoxaparin Sodium (Lovenox) 40 mg SUBCUT Q24H [facility] Last Admin: 04/06/19 15:00 Dose: 40 mg Insulin Glargine (Lantus Solostar) 50 units SUBCUT BEDTIME [facility] Last Admin: 04/05/19 20:14 Dose: 50 units Insulin Human Lispro (Humalog) 0 unit SUBCUT WITHMEALSANDBED [facility]; Protocol Last Admin: 04/06/19 17:33 Dose: 4 unit Magnesium Oxide (Magnesium Oxide) 500 mg PO DAILY [facility] Last Admin: 04/06/19 08:21 Dose: 500 mg Metoprolol Tartrate (Lopressor) 50 mg PO BID [facility] Last Admin: 04/06/19 08:22 Dose: 50 mg Ondansetron HCl (Zofran Odt) 4 mg PO Q4H PRN PRN Reason: nausea, able to take PO Simvastatin (Zocor) 80 mg PO BEDTIME [facility] Last Admin: 04/05/19 19:42 Dose: 80 mg Sodium Chloride (Saline Flush) 10 ml FLUSH ASDIRECTED PRN PRN Reason: Keep Vein Open Temazepam (Restoril) 15 mg PO BEDTIME PRN PRN Reason: Sleep Discontinued Medications Metoprolol Tartrate (Lopressor) 50 mg PO BID [facility] Metoprolol Tartrate (Lopressor) 50 mg PO BID [facility] Last Admin: 04/04/19 08:15 Dose: 50 mg Simvastatin (Zocor) 80 mg PO DAILY [facility] Simvastatin (Zocor) 80 mg PO BEDTIME [facility] Last Admin: 04/03/19 19:12 Dose: 80 mg - Exam General: Alert, Oriented, Cooperative, No Acute Distress HEENT: Pupils Equal, Pupils Reactive, EOMI, Mucous Membr. Moist/[place] Neck: Supple Lungs: Clear to Auscultation, Normal Respiratory Effort Cardiovascular: Regular Rate, Regular Rhythm, No Murmurs GI/Abdominal Exam: Soft, Non-Tender Back Exam: Normal Inspection, Full Range of Motion Extremities: Normal Inspection, Normal Range of Motion, Non-Tender, No Pedal Edema, Normal Capillary Refill Peripheral Pulses: 2+: Radial (L), Radial (R), Posterior Tibial (L), Posterior Tibial (R), Dorsalis Pedis (L), Dorsalis Pedis (R) Skin: Warm, Dry, Intact Neurological: Strength Equal Bilateral, Sensation Intact, Other (Right sided facial droop. Slurred speech, but understood. Gait ataxia. Generalized leg weakness. Was able to one person assist patient with walker from chair to standing to pivot to sit on bed. ). No: Normal Speech Psy/Mental Status: Alert, Normal Affect, Normal Mood Sepsis Event Note - Evaluation Sepsis Screening Result: No Definite Risk - Focused Exam Vital Signs: Vital Signs Temp Pulse Pulse Resp BP BP BP 04/06/19 16:00 98.1 F 77 24 H 151/68 H 04/06/19 12:00 98 F 69 20 168/79 H 161/68 H 04/06/19 08:22 74 154/66 H 04/06/19 08:00 96.5 F 74 20 154/66 H Pulse Ox 04/06/19 16:00 98 04/06/19 12:00 97 04/06/19 08:22 04/06/19 08:00 97 Date Exam was Performed: 04/06/19 Time Exam was Performed: 18:22 - Problem List Review Problem List Initiated/Reviewed/Updated: Yes - My Orders Last 24 Hours: My Active Orders 04/07/19 05:00 BMP [BASIC METABOLIC PANEL,BMP] [CHEM] DAILY CBC WITH AUTO DIFF [HEME] DAILY 04/08/19 05:00 BMP [BASIC METABOLIC PANEL,BMP] [CHEM] DAILY CBC WITH AUTO DIFF [HEME] DAILY - Assessment Assessment:: Weakness Dizziness Unsteady gait - Plan Plan:: Robinson has overall been doing well. continues to have some unsteadiness with his gait. Speech if fluent. Will continue to monitor neuro status and will look into MRI of the brain on Monday. Carotid duplex tomorrow. 04-04-2019 Patient is feeling better, speech is clearer today. Does still have unsteady gait with walker. Strengths are equal but patient feels weak. Blood pressure has been running high over the last 2 days, this am 175/72. Afebrile. Labs have been stable. Will transfer to acute inpatient. obtain MRI of brain. MRA of head and neck. Patient will continue Plavix and aspirin. Physical therapy for balance/ strengthening. 04-05-2019 Patient doing well, speech remains clear. Does feel his balance is better but still using a walker and standby assist. Neuro exam is normal, strengths are equal throughout. Blood pressure improved today 149/59. WBC normal at 8.5, CRP 1.8. Electrolytes normal. Continue PT. Obtain MRI/MRA today with stat read. If no acute concerns, possible discharge home tomorrow. 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 No evidence of hemorrhagic transformation. Patient reports having difficulty with walking and feeling off balance and generally weak. Patient does have slurred speech. This is stable, as far has not worsened from report given to me by provider yesterday director of land acquisition today. I called and spoke to Neurologist Dr. Sacnhez at [facility] about the patient and MRI results. He reports that at this time the treatment is doing cardiovascular risk prevention. He reports having the patient on asa, having patient on a statin, lowering LDL to 75 or lower, managing his BP, echocardiogram. He reports rehab for his current symptoms. Dr. Sanchez reports a nail professional can manage this patient cardiovascular risks, or PCP if they feel comfortable doing so. He reports there is no current need to keep the patient in the hospital medically from a stroke stand point. The patient is not able to ambulate or go home on his own safely. I will keep the patient until Monday, have the patient see PCP and protective services social worker for a plan of possible placement. Patient is currently on ASA, simvastatin, and BP tx. I have ordered lipid panel for Monday morning routine. I will also order an echocardiogram.
[2019-04-06] MEDS ORDERED: Simvastatin 10 MG Tab PO SCH (20:00)
[2019-04-06] MEDS: amLODIPine 2.5 MG Tab PO SCH (20:12)
[2019-04-06] MEDS: Simvastatin 40 MG Tab PO SCH (20:12)
[2019-04-06] MEDS: Insulin Glargine,Human Rec. Analog 100 Units/ML 3 ML Pen SUBCUT SCH (20:15)
[2019-04-07 07:57] LABS: CHLORIDE,CL 104 mEq/L (98-106); SODIUM,NA 142 mEq/L (136-145)
[2019-04-07] MEDS: Aspirin 81 MG Tab.EC PO SCH (08:36)
[2019-04-07] MEDS: Metoprolol Tartrate 50 MG Tab PO SCH (08:36)
[2019-04-07] MEDS: Insulin Lispro 100 Units/ML 3 ML Vial SUBCUT SCH ×2 (08:36→12:05)
[2019-04-07] MEDS: Ascorbic Acid 500 MG Tab PO SCH (08:36)
[2019-04-07] MEDS ORDERED: MVI, Adult with Vitamin K 10 ML, Folic Acid 1 MG, Thiamine 100 MG, Magnesium Sulfate 2 ... IV ONE ×5 (12:35)
[2019-04-07] MEDS ORDERED: Iopamidol 755 Mg/ML 100 ML Bottle IVPUSH ONE (12:58)
[2019-04-07] MEDS: Enoxaparin 40 MG/0.4 ML Syringe SUBCUT SCH (15:00)
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
[2019-04-07 16:14] VITALS: BP 141/72; PULSE 70
== END 2019-04-07 17:12 | DRG 92 ==
LOC: CC.ED 10:46 → CC.MS 13:39 → UNDOADMOB 13:43 → OBSVTOIN 04-04 09:00
PROVIDERS: ADMIT Physician Assistant Medical; ATTEND Family Medicine
DX: R29.810 Facial weakness (principal); R53.1 Weakness; G81.91 Hemiplegia, unspecified affecting right dominant side; W01.0XXA Fall on same level from slipping, tripping and stumbling without subsequent striking against object, initial encounter; R47.81 Slurred speech; I10 Essential (primary) hypertension; E78.00 Pure hypercholesterolemia, unspecified; E89.2 Postprocedural hypoparathyroidism; N40.0 Benign prostatic hyperplasia without lower urinary tract symptoms; E11.9 Type 2 diabetes mellitus without complications; Z96.659 Presence of unspecified artificial knee joint; Z95.5 Presence of coronary angioplasty implant and graft; R26.81 Unsteadiness on feet; R42 Dizziness and giddiness; Z79.899 Other long term (current) drug therapy; Z79.4 Long term (current) use of insulin; Z79.82 Long term (current) use of aspirin; Z86.73 Personal history of transient ischemic attack (TIA), and cerebral infarction without residual deficits; Z79.02 Long term (current) use of antithrombotics/antiplatelets
CPT/HCPCS: 36415; 70450; 70496; 70498; 70544; 70547; 70551; 80048; 82550; 82962; 83615; 84484; 85025; 85610; 85730; 86140; 93005; 96372; 97110-GP; 97161-GP; 99220; 99225; 99285-25; A9270-GY; G0378; J1650; J1815; J1815-GY; J3411; J3475; J3490; J7030; Q9967